=== PATIENT | female | born 1980 | race Caucasian/White ===

== ENCOUNTER 2021-07-01 18:20 | Emergency (ER) | payer MEDICAID ==
[~2021-07-01] VITALS: Ht 157.5 cm; Wt 118.0 kg
--- NOTE | 2021-07-01 18:42 | NUR ---
VERBAL ORDER FROM DR ARCHER FOR TSH ON PT
[2021-07-01 18:53] LABS: BASOPHILS % (AUTO) 0.4 % (0-1); EOSINOPHILS # (AUTO) 0.1 X10'3 (0-0.9); EOSINOPHILS % (AUTO) 1.5 % (0-6); HEMOGLOBIN 13.4 g/dl (12.0-16.0); LYMPHOCYTES # (AUTO) 2.5 X10'3 (1.1-4.8); LYMPHOCYTES % (AUTO) 43.2 % (21-51); MEAN CORPUSCULAR HEMOGLOBIN 25.5 PG (27.0-31.0); MEAN CORPUSCULAR HGB CONC 33.5 g/dL (33.0-36.5); MEAN PLATELET VOLUME 10.1 FL (7.4-10.4); MONOCYTES # (AUTO) 0.4 X10'3 (0-0.9); NEUTROPHILS # (AUTO) 2.7 X10'3 (1.8-7.7); NEUTROPHILS % (AUTO) 47.9 % (42-75); PLATELET COUNT 231 X10'3 (140-440); RED BLOOD COUNT 5.26 X10'6 (4.20-5.60); RED CELL DISTRIBUTION WIDTH 13.2 % (11.5-14.5); WHITE BLOOD COUNT 5.7 X10'3 (4.5-11.0)
--- NOTE | 2021-07-01 18:55 | NUR ---
PT WENT TO THE CLINIC BECAUSE SHE NOTICED SWELLING ON HER NECK AND WAS HAVING SOME TROUBLE BREATHING AND AT THE CLINIC THEY TOLD HER TO COME THE ER
[2021-07-01 19:08] LABS: ALANINE AMINOTRANSFERASE 64 U/L (12-78); ALBUMIN 3.6 G/DL (3.4-5.0); ALBUMIN/GLOBULIN RATIO 0.9 (1.1-1.5); ALKALINE PHOSPHATASE 173 IU/L (46-116); ANION GAP 10 (8-16); ASPARTATE AMINO TRANSFERASE 30 U/L (10-37); BILIRUBIN,TOTAL 0.3 MG/DL (0.1-1.0); BLOOD UREA NITROGEN 16 MG/DL (7-18); BUN/CREATININE RATIO 33.3 (6.6-38.0); CALCIUM 9.5 MG/DL (8.5-10.1); CHLORIDE 104 MMOL/L (99-107); CREATININE 0.48 MG/DL (0.40-0.90); GLUCOSE 142 MG/DL (70-104); POTASSIUM 3.7 MMOL/L (3.5-5.1); SODIUM 141 MMOL/L (135-145); TOTAL CARBON DIOXIDE 26.6 MMOL/L (24-32); TOTAL PROTEIN 7.4 G/DL (6.4-8.2); eGFR > 90 ML/MIN
[2021-07-01] MEDS ORDERED: propranolol 10mg tablet PO ONE ×2 (20:30→22:20)
[2021-07-01] MEDS ORDERED: normal saline 1000ml 1,000 ML IV ONE (21:45)
[2021-07-01] MEDS ORDERED: hydrocortisone sod succ/PF 100mg/2ml inj. IV ONE (22:20)
--- NOTE | 2021-07-01 23:04 | NUR ---
[facility] JOSE UNABLE TO ACCEPT PT. CONSULT WITH ENDOCRINOLOGY PAGED OUT AND WILL WAIT FOR CALL
[2021-07-01 23:06] VITALS: BP 123/74
[2021-07-02] MEDS ORDERED: propranolol 10mg tablet PO ONE (00:05)
[2021-07-02 05:32] LABS: HCG SERUM QL NEGATIVE
[2021-07-02] MEDS ORDERED: PRED50TA PO (05:59)
== END 2021-07-02 07:02 | disposition left against medical advice (07) ==
LOC: ER 18:21
DX: E05.81 Other thyrotoxicosis with thyrotoxic crisis or storm (principal); F12.10 Cannabis abuse, uncomplicated
CPT/HCPCS: 36415; 80053; 84439; 84443; 84703; 85025; 93005; 96361; 96374; 99291; 99292; J1720; J7030

== ENCOUNTER 2021-07-08 17:18 | Emergency (ER) | payer MEDICAID ==
[~2021-07-08] VITALS: Ht 162.6 cm; Wt 50.0 kg
[~2021-07-08 17:18] MED LIST: PRED50TA PO
[2021-07-08 17:43] VITALS: BP_DIAS 80
[2021-07-08] MEDS ORDERED: propranolol 10mg tablet PO ONE (18:05)
[2021-07-08 18:19] LABS: BASOPHILS % (AUTO) 0.5 % (0-1); EOSINOPHILS % (AUTO) 0 % (0-6); HEMATOCRIT 40.7 % (35.0-45.0); HEMOGLOBIN 13.4 g/dl (12.0-16.0); LYMPHOCYTES # (AUTO) 1.9 X10'3 (1.1-4.8); LYMPHOCYTES % (AUTO) 25.2 % (21-51); MEAN CORPUSCULAR HEMOGLOBIN 25.3 PG (27.0-31.0); MEAN CORPUSCULAR HGB CONC 32.8 g/dL (33.0-36.5); MEAN CORPUSCULAR VOLUME 76.9 FL (78-98); MEAN PLATELET VOLUME 10.4 FL (7.4-10.4); MONOCYTES # (AUTO) 0.2 X10'3 (0-0.9); MONOCYTES % (AUTO) 2.7 % (2-12); NEUTROPHILS # (AUTO) 5.3 X10'3 (1.8-7.7); NEUTROPHILS % (AUTO) 71.6 % (42-75); PLATELET COUNT 278 X10'3 (140-440); RED BLOOD COUNT 5.29 X10'6 (4.20-5.60); RED CELL DISTRIBUTION WIDTH 13.7 % (11.5-14.5); WHITE BLOOD COUNT 7.5 X10'3 (4.5-11.0)
[2021-07-08 18:32] LABS: PARTIAL THROMBOPLASTIN TIME 27 SECONDS (22-32)
[2021-07-08 18:34] LABS: CHLORIDE 104 MMOL/L (99-107); GLUCOSE 111 MG/DL (70-104); POTASSIUM 4.1 MMOL/L (3.5-5.1); SODIUM 143 MMOL/L (135-145)
[2021-07-08 18:35] LABS: ALANINE AMINOTRANSFERASE 68 U/L (12-78); ALBUMIN 3.8 G/DL (3.4-5.0); ALKALINE PHOSPHATASE 165 IU/L (46-116); ANION GAP 10 (8-16); ASPARTATE AMINO TRANSFERASE 31 U/L (10-37); BILIRUBIN,TOTAL 0.4 MG/DL (0.1-1.0); BLOOD UREA NITROGEN 14 MG/DL (7-18); CALCIUM 9.9 MG/DL (8.5-10.1); TOTAL CARBON DIOXIDE 28.6 MMOL/L (24-32); TOTAL PROTEIN 7.7 G/DL (6.4-8.2); eGFR > 90 ML/MIN
[2021-07-08 18:46] LABS: MAGNESIUM 1.8 MG/DL (1.5-2.4)
[2021-07-08 21:37] LABS: URINE HCG NEGATIVE (NEG)
[2021-07-08] MEDS ORDERED: METH-604 PO (22:00)
[2021-07-08] MEDS ORDERED: ATEN-168 PO (22:00)
[2021-07-08] MEDS ORDERED: atenolol 25mg tablet PO ONE (22:05)
[2021-07-08] MEDS ORDERED: methimazole 5mg tablet PO SCH (22:10)
[2021-07-08] MEDS ORDERED: methimazole 5mg tablet PO ONE (22:10)
[2021-07-08 22:24] VITALS: BP_SYST 139
== END 2021-07-08 23:04 | disposition home or self-care (01) ==
LOC: ER 17:20
DX: E05.90 Thyrotoxicosis, unspecified without thyrotoxic crisis or storm (principal); R42 Dizziness and giddiness; R07.89 Other chest pain; F12.90 Cannabis use, unspecified, uncomplicated; R11.0 Nausea; Z79.899 Other long term (current) drug therapy; Z72.89 Other problems related to lifestyle
CPT/HCPCS: 36415; 71045; 80053; 81025; 83735; 83880; 84439; 84443; 84480; 84484; 85025; 85610; 85730; 93005; 99285

== ENCOUNTER 2021-08-09 00:49 | Emergency (ER) | payer MEDICAID ==
[~2021-08-09] VITALS: Ht 157.5 cm; Wt 57.3 kg
[~2021-08-09 00:49] MED LIST changes: +ATEN-168 PO; +METH-604 PO
[2021-08-09 00:59] VITALS: BP 117/64
[2021-08-09] MEDS ORDERED: diphenhydrAMINE 25mg capsule PO ONE (03:25)
[2021-08-09] MEDS ORDERED: famotidine 20mg tablet PO ONE (03:25)
[2021-08-09 04:11] LABS: URINE HCG NEGATIVE (NEG)
[2021-08-09 04:14] LABS: BASOPHILS # (AUTO) 0.1 X10'3 (0-0.2); BASOPHILS % (AUTO) 0.7 % (0-1); EOSINOPHILS # (AUTO) 0.4 X10'3 (0-0.9); EOSINOPHILS % (AUTO) 3.4 % (0-6); HEMOGLOBIN 14.2 g/dl (12.0-16.0); LYMPHOCYTES # (AUTO) 5.5 X10'3 (1.1-4.8); LYMPHOCYTES % (AUTO) 43.6 % (21-51); MEAN CORPUSCULAR HEMOGLOBIN 25.9 PG (27.0-31.0); MEAN CORPUSCULAR HGB CONC 33.8 g/dL (33.0-36.5); MEAN CORPUSCULAR VOLUME 76.5 FL (78-98); MEAN PLATELET VOLUME 9.5 FL (7.4-10.4); MONOCYTES # (AUTO) 0.8 X10'3 (0-0.9); MONOCYTES % (AUTO) 6.5 % (2-12); NEUTROPHILS # (AUTO) 5.8 X10'3 (1.8-7.7); NEUTROPHILS % (AUTO) 45.8 % (42-75); PLATELET COUNT 286 X10'3 (140-440); RED CELL DISTRIBUTION WIDTH 14.1 % (11.5-14.5); WHITE BLOOD COUNT 12.6 X10'3 (4.5-11.0)
[2021-08-09 04:19] LABS: CLARITY,URINE CLEAR (Clear); COLOR,URINE YELLOW (Yellow); GLUCOSE, URINE NEGATIVE (Neg); KETONES,URINE NEGATIVE (Neg); LEUKOCYTE ESTERASE ,URINE TRACE (Neg); NITRITES, URINE NEGATIVE (Neg); OCCULT BLOOD,URINE NEGATIVE (Neg); PH,URINE 5.5 (4.8-8.0); PROTEIN,URINE NEGATIVE (Neg); UROBILINOGEN,URINE 0.2 E.U/dL (0.2-1.0)
[2021-08-09 04:23] LABS: URINE AMPHETAMINE SCREEN NEGATIVE (Neg); URINE BARBITUATE SCREEN NEGATIVE (Neg); URINE BENZODIAZEPINES SCREEN NEGATIVE (Neg); URINE CANNABINOID SCREEN NEGATIVE (Neg); URINE COCAINE SCREEN NEGATIVE (Neg); URINE METHADONE SCREEN NEGATIVE (Neg); URINE OPIATE SCREEN NEGATIVE (Neg); URINE PHENCYCLIDINE SCREEN NEGATIVE (Neg)
[2021-08-09 04:27] LABS: ALANINE AMINOTRANSFERASE 46 U/L (12-78); ALBUMIN 3.8 G/DL (3.4-5.0); ALKALINE PHOSPHATASE 260 IU/L (46-116); ANION GAP 8 (8-16); ASPARTATE AMINO TRANSFERASE 13 U/L (10-37); BILIRUBIN,TOTAL 0.2 MG/DL (0.1-1.0); BLOOD UREA NITROGEN 15 MG/DL (7-18); BUN/CREATININE RATIO 30.6 (6.6-38.0); CHLORIDE 102 MMOL/L (99-107); CREATININE 0.49 MG/DL (0.40-0.90); GLUCOSE 94 MG/DL (70-104); POTASSIUM 4.1 MMOL/L (3.5-5.1); SODIUM 138 MMOL/L (135-145); TOTAL CARBON DIOXIDE 27.8 MMOL/L (24-32); TOTAL PROTEIN 7.8 G/DL (6.4-8.2); eGFR > 90 ML/MIN
[2021-08-09 04:37] LABS: LIPASE 126 U/L (73-393)
[2021-08-09 04:41] LABS: UA COLLECTION TYPE CLN CATCH MIDSTREAM
[2021-08-09 04:43] LABS: BACTERIA,URINE FEW /HPF (Neg); MUCUS STRANDS FEW /LPF (Neg); RBC,URINE 0-2 /HPF (0-2); SQUAMOUS EPITHELIAL CELL,UR FEW /LPF (FEW); WBC,URINE 0-4 /HPF (0-4)
[2021-08-09] MEDS ORDERED: LORA10TA7 PO (05:59)
[2021-08-09] MEDS ORDERED: FAMO-128 PO (05:59)
[2021-08-09] MEDS ORDERED: DIPH-423 PO (05:59)
== END 2021-08-09 06:15 | disposition home or self-care (01) ==
LOC: ER 00:50
DX: L50.9 Urticaria, unspecified (principal); F12.90 Cannabis use, unspecified, uncomplicated; Z79.899 Other long term (current) drug therapy
CPT/HCPCS: 36415; 80053; 80305; 81001; 81025; 83690; 84439; 84443; 85025; 85651; 87088; 93005; 99284; Q0163